=== PATIENT | male | born 1975 | race Native Hawaiian/Other Pacific Islander ===

== ENCOUNTER 2018-09-05 14:39 | Emergency (ER) | payer SELFPAY ==
--- NOTE | 2018-09-05 14:54 | Emergency Department Report ---
Blank Doc - Documentation Documentation: This is a 20-year-old male that presents with AMS. This initial assessment/diagnostic orders/clinical plan/treatment(s) is/are subject to change based on patient's health status, clinical progression and re- assessment by fellow clinical providers in the ED. Further treatment and workup at subsequent clinical providers discretion. Patient/guardians urged not to elope from the ED as their condition may be serious if not clinically assessed and managed. Initial orders include: 1- Patient sent to Main ed for further evaluation and treatment 2- labs 3- EKG 4- UA 5- CXR/CT head
[2018-09-05 15:25] LABS: Basophils % (Auto) 0.2 % (0.0-1.8); Eosinophils % (Auto) 0.1 % (0.0-4.3); Hematocrit 42.3 % (35.5-45.6); Hemoglobin 14.7 gm/dl (11.8-15.2); Lymphocytes # (Auto) 0.8 K/mm3 (1.2-5.4); Lymphocytes % (Auto) 13.5 % (13.4-35.0); Mean Corpuscular HGB Conc 35 % (32-34); Mean Corpuscular Volume 92 fl (84-94); Monocytes # (Auto) 0.3 K/mm3 (0.0-0.8); Monocytes % (Auto) 4.6 % (0.0-7.3); Red Blood Count 4.59 M/mm3 (3.65-5.03); Red Cell Distribution Width 13.4 % (13.2-15.2)
[2018-09-05 15:33] LABS: INR 1.1 (0.87-1.13)
[2018-09-05 15:34] LABS: Partial Thromboplastin Time 23.7 Sec. (24.2-36.6)
[2018-09-05 15:39] LABS: Platelet Count 98 K/mm3 (140-440)
[2018-09-05 15:47] LABS: Alanine Aminotransferase 21 units/L (7-56); Albumin 4.5 g/dL (3.9-5); BUN/Creatinine Ratio 26; Blood Urea Nitrogen 18 mg/dL (9-20); Hemolysis Index 5
--- NOTE | 2018-09-05 16:34 | XRay Report ---
CHEST 2 VIEWS INDICATION: Altered Mental Status. COMPARISON: none FINDINGS: Support devices: None. Heart: Within normal limits. Lungs: No acute air space or interstitial disease. Pleura: No significant pleural effusion. No pneumothorax. Additional findings: None. IMPRESSION: 1. No acute findings. Signer Name: Jase San MD Signed: 09/05/2018 4:30 PM Workstation Name: [id number]
[2018-09-05] MEDS ORDERED: CEREBYX 1,000 MG.PE in NACL 0.9% 100 ML IV ONE (17:00)
[2018-09-05] MEDS ORDERED: NACL 0.9% 1000 ML 1,000 ML IV ONE (17:16)
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
[2018-09-05 17:48] LABS: Bilirubin,Urine NEG (Negative); Blood,Urine NEG (Negative); Color,Urine Yellow (Yellow); Mucus,Urine FEW /HPF; Protein,Urine <15 mg/dL mg/dL (Negative); Urobilinogen,Urine < 2.0 mg/dL (<2.0)
[2018-09-05 17:56] LABS: Amphetamine Screen,Urine PRESUMPTIVE NEGATIVE; Benzodiazepines Screen,Urine PRESUMPTIVE NEGATIVE; Cannabinoid Screen,Urine PRESUMPTIVE NEGATIVE; Cocaine Screen,Urine PRESUMPTIVE NEGATIVE; Methadone Screen,Urine PRESUMPTIVE NEGATIVE; Opiate Screen,Urine PRESUMPTIVE NEGATIVE
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
[2018-09-05] MEDS ORDERED: TYLENOL PO ONE (19:06)
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
[2018-09-05 23:20] VITALS: BP 117/67
== END 2018-09-05 23:19 | disposition home or self-care (01) ==
LOC: EDBD → ED 14:39
DX: G40.909 Epilepsy, unspecified, not intractable, without status epilepticus (principal); D69.6 Thrombocytopenia, unspecified
CPT/HCPCS: 36415; 70450; 71046; 72125; 80053; 80185; 80307; 81001; 82140; 82550; 82805; 83735; 84484; 85025; 85610; 85730; 87040; 87086; 93005; 93010; 96365; 99285; J7030; Q2009; 80320; G0480